=== PATIENT | female | born 1985 | race Caucasian/White ===

== ENCOUNTER 2022-04-09 12:06 | Outpatient (REF) | payer BC, MEDICAID, SELFPAY ==
--- NOTE | ~2022-04-09 | XR_ITS ---
EXAMINATION: XR ABDOMEN KUB CLINICAL INDICATION: Long-term drug therapy. COMPARISON: None TECHNIQUE: AP view of the abdomen. FINDINGS: Moderate gastric gaseous distention is seen. No significantly dilated loops of small bowel are seen. Mild to moderate gas and stool are seen within the colon distally to the rectum with moderate stool at the level the rectum. The osseous structures are unremarkable. XR/XR KUB IMPRESSION: 1. Moderate gastric gaseous distention this is nonspecific and could represent large gas bolus however, can be seen with gastroparesis. Gastric outlet obstruction would be less likely. 2. Mild to moderate colonic and rectal stool burden. Correlate with stool output. If symptoms persist or worsen, short-term repeat radiographic follow-up is recommended as clinically indicated to assess for change as there is no previous study available for comparison.
== END 2022-04-09 12:07 | disposition home or self-care (01) ==
LOC: HO.XRAY 12:06
PROVIDERS: PCP Internal Medicine; Visit Provider Internal Medicine Gastroenterology
DX: E46 Unspecified protein-calorie malnutrition (principal); R19.4 Change in bowel habit; Z79.899 Other long term (current) drug therapy
CPT/HCPCS: 74018

== ENCOUNTER 2022-04-19 09:34 | Outpatient (REF) | payer MEDICARE, MEDICAID, SELFPAY ==
[2022-04-19 10:00] LABS: MANUAL DIFF FLAG NO
[2022-04-19 10:22] LABS: Basophils Percent Auto 0.6 % (0-2); Eosinophils Absolute Auto 0.3 X10*3/uL (0.0-0.4); Eosinophils Percent Auto 5.2 % (0-4); Hematocrit 41.5 % (37.0-47.0); Hemoglobin 13.8 g/dl (12.0-16.0); Imm Gran Abs Auto 0.01 X10*3/uL (0.00-0.03); Imm Gran Pct Auto 0.2 % (0.0-0.4); Lymphocytes Absolute Auto 1.3 X10*3/uL (1.2-4.9); Lymphocytes Percent Auto 25.1 % (20-40); Mean Corpuscular HGB Conc 33.3 g/dl (31.0-35.0); Mean Corpuscular Volume 93.3 fL (80.0-98.0); Mean Platelet Volume 9.6 fL (9.4-12.3); Monocytes Absolute Auto 0.3 X10*3/uL (0.1-1.2); Neutrophils Absolute Auto 3.1 x10*3/uL (2.0-8.3); Neutrophils Percent Auto 62.9 % (45-73); Platelet Count 243 X10*3/uL (160-400); Red Blood Count 4.45 X10*6/uL (4.20-5.50)
[2022-04-19 10:59] LABS: Alanine Aminotransferase 46 U/L (0-31); Albumin Level 4.8 g/dL (3.5-5.0); Alkaline Phosphatase 60 U/L (39-117); Anion Gap 15 (12-20); Aspartate Amino Transferase 24 U/L (5-31); Bilirubin Total 0.3 mg/dL (0.0-1.0); Blood Urea Nitrogen 6 mg/dL (9-16); C Reactive Protein 0.02 mg/dL (< or = 0.50); Calcium 10.6 mg/dL (8.4-10.2); Carbon Dioxide 26 mmol/L (22-29); Chloride 101 mmol/L (96-108); Estimated Glomerular Filt Rate > 60; Glucose Random 77 mg/dL (60-115); Magnesium 1.9 mg/dL (1.6-2.6); Potassium 3.8 mmol/L (3.3-5.1); Sodium 138 mmol/L (135-145); Total Protein 7.7 g/dL (6.5-8.0)
[2022-04-19 11:02] LABS: Erythrocyte Sedimentation Rate 7 MM/HR (0-20)
[2022-04-19 11:14] LABS: Ferritin 21 ng/mL (10-122); TSH reflex Free T4 1.24 uIU/mL (0.32-4.0)
[2022-04-19 11:38] LABS: Folate 10.2 ng/mL (> or = 4.0); Vitamin B12 411 pg/mL (200-900)
[2022-04-22 05:02] LABS: Zinc 78 mcg/dL (60-130)
[2022-04-22 16:02] LABS: Calcium, Ionized 5.2 mg/dL (4.8-5.6)
[2022-04-23 16:52] LABS: Histamine Plasma <1.5 ng/mL (< OR = 1.8)
[2022-04-23 17:36] LABS: Vitamin A 58 mcg/dL (38-98)
[2022-04-24 15:06] LABS: Vitamin C 0.8 mg/dL (0.3-2.7)
[2022-04-26 15:47] LABS: Nicotinamide <20 ng/mL; Vit B3 - Nicotinic Acid <20 ng/mL
[2022-04-26 15:52] LABS: Vitamin B5 (Pantothenic Acid) <40 ng/mL (<275)
== END 2022-04-19 09:35 | disposition home or self-care (01) ==
LOC: HO.LAB 09:34
PROVIDERS: PCP Internal Medicine; Visit Provider Internal Medicine Gastroenterology
DX: E46 Unspecified protein-calorie malnutrition (principal); R19.4 Change in bowel habit; R19.7 Diarrhea, unspecified; E83.52 Hypercalcemia; K75.81 Nonalcoholic steatohepatitis (NASH); Z79.899 Other long term (current) drug therapy
CPT/HCPCS: 36415; 80053; 82180; 82306; 82330; 82607; 82728; 82746; 83088; 83520; 83735; 84207; 84443; 84590; 84591; 84630; 85025; 85652; 86140

== ENCOUNTER 2025-05-07 11:30 | Outpatient (REF) | payer MEDICARE, MEDICAID, SELFPAY ==
--- NOTE | ~2025-05-07 | XR_ITS ---
EXAMINATION: XR CHEST 2 VIEWS HISTORY: R05.9 - Cough, unspecified COMPARISON: There are no prior studies available for comparison. FINDINGS: PA and lateral views of the chest are submitted. The lungs are expanded and clear. There is no pleural effusion, pneumothorax, or pulmonary vascular congestion. The heart is normal in size. The bones are intact. XR/XR chest 2V IMPRESSION: Normal examination of the chest. Electronically signed by: Gene Ellington MD 05/07/2025 01:00 PM EDT
[2025-05-09 08:58] LABS: Alcohol, Ethyl Urine Screen NEGATIVE
[2025-05-13 09:20] LABS: PCP Confirmation GC/MS Urine NEGATIVE
== END 2025-05-07 11:31 | disposition home or self-care (01) ==
LOC: HO.10HDL 11:30
PROVIDERS: PCP Internal Medicine; Visit Provider Internal Medicine
DX: Z51.81 Encounter for therapeutic drug level monitoring (principal); R05.9 Cough, unspecified; F31.9 Bipolar disorder, unspecified; E03.9 Hypothyroidism, unspecified; Z79.899 Other long term (current) drug therapy; R53.83 Other fatigue
CPT/HCPCS: 71046; 80307; 83992; 99212

== ENCOUNTER 2025-05-07 11:30 | Outpatient (AMB) | payer MEDICARE, MEDICAID, SELFPAY ==
--- NOTE | 2025-05-07 11:33 | MHC.PC.OV ---
Vital Signs 05/07/25 11:36 Height 5 ft 1 in Weight 163 lb 8 oz BMI 30.9 BP 130/84 Blood Pressure Location Lt brachial Position Sitting Respiration 16 Pulse 87 Pulse Source Pulse Oximeter Temp 98.2 F Temp Source Oral Pulse Oximetry (%) 96 Oxygen Delivery Method Room Air Intake Visit Reasons: fatigue, dry cough, discuss possible ortho surgery Automobile Technician Required: No Accompanied by: Self / Same As Patient Allergies acetaminophen (From Vicodin) Allergy (Severe, Verified 05/07/25 11:33) Vomiting gabapentin Allergy (Severe, Verified 05/07/25 11:33) Shortness of Breath oxycodone Allergy (Intermediate, Verified 05/07/25 11:39) excessive sweating tizanidine (From Zanaflex) Allergy (Intermediate, Verified 05/07/25 11:33) Confusion cefazolin (From Ancef) Allergy (Unknown, Verified 05/07/25 11:33) Hives tramadol (From Ultram) Adverse Reaction (Severe, Verified 05/07/25 11:33) siezures metoclopramide (From Reglan) Adverse Reaction (Intermediate, Verified 05/07/25 11:33) Agitated Medication List - Last Reconciled 05/07/25 by Chandrika Flaherty MD acetaminophen-codeine 300-30 mg 2 tabs PO Q4H PRN albuterol sulfate 90 mcg/actuation 2 puffs inhalation Q6H PRN clonazepam 1 mg PO TID dicyclomine 10 mg PO QID furosemide 20 mg PO DAILY PRN gabapentin 300 mg PO BEDTIME lithium carbonate 300 mg PO meclizine 25 mg PO TID PRN metaxalone 800 mg PO BID PRN mupirocin 2% topical TID ondansetron 4 mg PO Q8H PRN propranolol 10 mg PO TID PRN ropinirole 0.5 mg PO DAILY tranexamic acid 1,300 mg PO TID trazodone 100 mg PO BEDTIME PRN zolmitriptan mg PO Tobacco use date assessed: 05/07/25 Dental Screening Dental Screen Date: 05/07/25 Did you have a dental visit in the last 12 months?: Yes Did you have a dental problem in the last 6 months where you did not have access to dental care?: No Was dental information given to patient?: Patient has dentist HPI HPI Comments History of Present Illness Details History of Present Illness The patient is a 40-year-old female presenting with a persistent cough. [facility] The patient has reported a persistent dry cough lasting for 10 weeks, having initially been treated as a viral illness without symptom resolution. Attempts to manage the symptom with codeine-based cough suppressants and tessalon perles have been ineffective. There is a noted presence of occasional wheezing. She uses albuterol sporadically for symptom management. The patient denies any episodes of shortness of breath. Her medical history includes bipolar disorder, a seizure disorder, and irritable bowel syndrome. Additionally, the patient has hypothyroidism, not requiring meds currently. Chronic hip pain- uses tylenol 3 prn, has seen orthopedist Dr. 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 - Respiratory: Reports persistent dry cough; denies shortness of breath; reports occasional wheezing. - Gastrointestinal: Denies abdominal pain but has a history of irritable bowel syndrome. - Neurological: Denies acute symptoms related to seizure disorder. - Psychiatric: History of bipolar disorder, no acute psychiatric symptoms reported. Physical Exam - General- No acute distress observed. - HEENT- Extraocular movements intact. - Respiratory- Coarse breath sounds bilaterally. - Abdomen- Soft and tender, non-distended, with normal active bowel sounds. - Extremities- Trace edema bilaterally. Assessment and Plan 1. Persistent Cough The patient presents with persistent dry cough for over two months, unresponsive to prior treatments. Investigation through chest X-ray is warranted, with further assessment on potential post-viral etiology. Medrol dose cecilia trial if no significant abnormalities are noted. Notes increased awilda with prednisone. 2. Fatigue Persistent fatigue will be evaluated through a CBC, lytes, blood culture and thyroid function tests to rule out hematological or thyroid causes, given her known history of hypothyroidism and absence of anemia indicators. 3. Chronic hip pain- contract renewed, tox screen ordered, pt due for refill 05/17 Discussion Notes During our consultation, I discussed the potential underlying causes of the persistent cough and ongoing fatigue with the patient. A chest X-ray is planned to better understand the respiratory issues, particularly given the history of ineffective symptom management with prior treatments. We also discussed the potential contributions of hypothyroidism to her fatigue and agreed upon obtaining a CBC and thyroid panel for further investigation. Patient Instructions - Get a chest X-ray as planned. - Complete blood work for CBC and thyroid tests. - Continue using medications as prescribed. - Monitor symptoms and report any new or worsened symptoms. - Follow up in 2 weeks. [facility] Medical History (Updated 05/07/25 @ 12:14 by Chandrika Flaherty MD) Fatigue Therapeutic drug monitoring Malnutrition Hypothyroid Cough Seizures Bipolar disorder Surgical History Hx of tonsillectomy Hx of reduction mammoplasty Hx of endoscopy Hx of colonoscopy Family History (Updated 05/07/25 @ 09:17 by Chandrika Flaherty MD) Mother Lymphoma Social History Household Members: Family and Children Housing: House Alcohol intake: never Patient Tobacco Use Status: Former Tobacco user Tobacco use type: Cigarette Years Smoked: quit in 12/2012, used to smoke for about 2-3 yrs about 1 pack every 4 days. e-Cigarette/Vaping Use: Never Used service: No Current occupational status: disabled Questionnaire AUDIT C Alcohol Use Questionnaire (AUDIT-C) 1. How often do you have a drink containing alcohol?: Never 3. How often do you have six or more drinks on one occasion?: Never Total Score: 0 Physical exam (Primary Care) Vital Signs: Last Vital Signs Temp 98.2 F 05/07/25 11:36 Pulse 87 05/07/25 11:36 Resp 16 05/07/25 11:36 BP 130/84 05/07/25 11:36 Pulse Ox 96 05/07/25 11:36 Oxygen Delivery Method Room Air 05/07/25 11:36 BMI result Body Mass Index 30.9 Tobacco/Smoking Status: Tobacco use Status Tobacco use date assessed 05/07/25 05/07/25 11:52 Patient Tobacco Use Status Former Tobacco user 05/07/25 11:35 Tobacco use type Cigarette 05/07/25 11:35 e-Cigarette/Vaping Use Never Used 05/07/25 11:52 Coding Level of Care Code Est Pt Level 4 (79451) Complex EM visit Add On G2211 Diagnoses Cough R05.9 [place] use Z79.899 Bipolar disorder F31.9 Hypothyroid E03.9 Therapeutic drug monitoring Z51.81 Assessment & Plan Assessment & Plan (1) Cough: Code(s): R05.9 - Cough, unspecified Category: Medical (2) [place] use: Code(s): Z79.899 - Other intermodal dispatcher (current) drug therapy Category: Medical (3) Bipolar disorder: Code(s): F31.9 - Bipolar disorder, unspecified Category: Medical (4) Hypothyroid: Code(s): E03.9 - Hypothyroidism, unspecified Category: Medical (5) Therapeutic drug monitoring: Code(s): Z51.81 - Encounter for therapeutic drug level monitoring Category: Medical Plan See above for additional details We will focus on obtaining a chest X-ray to explore the cause of her persistent cough. The reported fatigue prompts examination through CBC and thyroid panel, especially in the context of her hypothyroidism history. Management of her chronic conditions will be maintained as per her usual regimen pending any acute exacerbations. Orders: Orders Complete Blood Count Auto Diff Today E03.9 - Hypothyroidism, unspecified, F31.9 - Bipolar disorder, unspecified, R05.9 - Cough, unspecified, Z79.899 - Other intermodal dispatcher (current) drug therapy Comprehensive Met. Panel Today E03.9 - Hypothyroidism, unspecified, F31.9 - Bipolar disorder, unspecified, Z79.899 - Other intermodal dispatcher (current) drug therapy TSH reflex Free T4 Today E03.9 - Hypothyroidism, unspecified Alcohol, Ethyl Urine Screen Today Z51.81 - Encounter for therapeutic drug level monitoring Blood Culture X2 Today R53.83 - Other fatigue XR chest 2V Today R05.9 - Cough, unspecified Opiate Screen Urine Today Z51.81 - Encounter for therapeutic drug level monitoring Cocaine Screen Urine Today Z51.81 - Encounter for therapeutic drug level monitoring Benzodiazepines Screen Urine Today Z51.81 - Encounter for therapeutic drug level monitoring PCP Confirmation GC/MS Urine Today Z51.81 - Encounter for therapeutic drug level monitoring Barbiturates, Urine Today Z51.81 - Encounter for therapeutic drug level monitoring
[2025-05-07 11:36] VITALS: BP 130/84; PULSE 87; RESP 16; TEMP 36.8; O2SAT 96; BMI 30.9
--- OUTSIDE RECORDS SUMMARY | 2025-05-07 14:50 | XMS_ITS ---
Author Name [facility] Organization Unknown History of Medication Use Medication Directions Dispensed Refills Start Date End Date Stat us Kenalog 40 mg/mL suspension for injection Take 1 mL by injection route. 06/14/2023 4 active Kenalog 40 mg/mL suspension for injection Take 1 mL by injection route. 06/14/2023 4 completed lidocaine (PF) 10 mg/mL (1 %) injection solution Take 2 mL by injection route. 06/14/2023 4 completed lidocaine (PF) 10 mg/mL (1 %) injection solution Take 2 mL by injection route. 06/14/2023 4 active albuterol sulfate HFA 90 mcg/actuation aerosol inhaler INHALE 2 PUFFS BY MOUTH EVERY 6 HOURS NEEDED FOR WHEEZING 4 completed furosemide 20 mg tablet TAKE ONE TABLET BY MOUTH EVERY DAY NEEDED FOR LEG SWELLING 4 completed meclizine 25 mg tablet TAKE ONE TABLET BY MOUTH THREE TIMES A DAY FOR 7 DAYS NEEDED FOR DIZZINESS 4 completed methylprednisolone 4 mg tablets in a dose pack 09/06 4 completed propranolol 10 mg tablet TAKE ONE TABLET BY MOUTH TWICE A DAY NEEDED FOR TREMORS / ANXIETY 4 completed ropinirole 0.25 mg tablet TAKE TWO TABLETS BY MOUTH AT BEDTIME NEEDED FOR RESTLESS LEGS 4 completed amoxicillin 875 mg-potassium clavulanate 125 mg tablet TAKE 1 TABLET BY MOUTH TWO TIMES A DAY FOR 7 DAYS WITH FOOD 4 completed amoxicillin 875 mg-potassium clavulanate 125 mg tablet TAKE 1 TABLET BY MOUTH TWO TIMES A DAY FOR 7 DAYS WITH FOOD 4 completed benztropine 1 mg tablet TAKE ONE TABLET BY MOUTH TWICE A DAY 4 completed benztropine 1 mg tablet TAKE ONE TABLET BY MOUTH TWICE A DAY 4 active clonazepam 1 mg tablet TAKE ONE TABLET BY MOUTH TWICE A DAY NEEDED FOR ANXIETY 4 completed clonazepam 1 mg tablet TAKE ONE TABLET BY MOUTH TWICE A DAY NEEDED FOR ANXIETY 4 active codeine 10 mg-guaifenesin 100 mg/5 mL oral liquid TAKE 5 ML BY MOUTH EVERY 6 HOURS NEEDED FOR COUGH. 4 completed codeine 10 mg-guaifenesin 100 mg/5 mL oral liquid TAKE 5 ML BY MOUTH EVERY 6 HOURS NEEDED FOR COUGH. 4 completed diclofenac 1 % topical gel APPLY 2 GRAMS TOPICALLY TO AFFECTED AREA S) FOUR TIMES A DAY NEEDED FOR MODERATE PAIN. NOT TO EXCEED 16GRAMS/DAY/SIN GLE JOINT OF LOWER EX 4 active diclofenac 1 % topical gel APPLY 2 GRAMS TOPICALLY TO AFFECTED AREA S) FOUR TIMES A DAY NEEDED FOR MODERATE PAIN. NOT TO EXCEED 16GRAMS/DAY/SIN GLE JOINT OF LOWER EX 4 completed fluticasone propionate 50 mcg/actuation nasal spray,suspension USE 1 SPRAY IN EACH NOSTRIL TWO TIMES A DAY FOR 21 DAYS 4 active fluticasone propionate 50 mcg/actuation nasal spray,suspension USE 1 SPRAY IN EACH NOSTRIL TWO TIMES A DAY FOR 21 DAYS 4 completed haloperidol 10 mg tablet TAKE ONE TABLET BY MOUTH EVERY DAY IN THE EVENING 4 completed haloperidol 10 mg tablet TAKE ONE TABLET BY MOUTH EVERY DAY IN THE EVENING 4 completed haloperidol 5 mg tablet TAKE 1 TABLET BY MOUTH TWO TIMES A DAY 4 completed haloperidol 5 mg tablet TAKE 1 TABLET BY MOUTH TWO TIMES A DAY 4 completed hydroxyzine HCl 25 mg tablet TAKE TWO TABLETS BY MOUTH THREE TIMES A DAY NEEDED FOR ANXIETY AND SLEEP 4 completed hydroxyzine HCl 25 mg tablet TAKE TWO TABLETS BY MOUTH THREE TIMES A DAY NEEDED FOR ANXIETY AND SLEEP 4 completed Ingrezza 80 mg capsule 4 completed Ingrezza 80 mg capsule 4 active Linzess 290 mcg capsule TAKE ONE CAPSULE BY MOUTH EVERY DAY 4 completed Linzess 290 mcg capsule TAKE ONE CAPSULE BY MOUTH EVERY DAY 4 active nicotine 21 mg/24 hr daily transdermal patch APPLY 1 PATCH TOPICALLY DAILY 4 completed nicotine 21 mg/24 hr daily transdermal patch APPLY 1 PATCH TOPICALLY DAILY 4 completed pramipexole 0.25 mg tablet TAKE ONE TABLET BY MOUTH AT BEDTIME 4 completed pramipexole 0.25 mg tablet TAKE ONE TABLET BY MOUTH AT BEDTIME 4 completed albuterol sulfate HFA 90 mcg/actuation aerosol inhaler INHALE 2 PUFFS BY MOUTH EVERY 6 HOURS NEEDED FOR WHEEZING active clonazepam 0.5 mg tablet TAKE ONE TABLET BY MOUTH TWICE A DAY NEEDED FOR ANXIETY active clonazepam 0.5 mg tablet TAKE ONE TABLET BY MOUTH TWICE A DAY NEEDED FOR ANXIETY active dicyclomine 10 mg capsule TAKE ONE CAPSULE BY MOUTH FOUR TIMES A DAY WITH MEALS AND SNACK active dicyclomine 10 mg capsule TAKE ONE CAPSULE BY MOUTH FOUR TIMES A DAY WITH MEALS AND SNACK active furosemide 20 mg tablet TAKE ONE TABLET BY MOUTH EVERY DAY NEEDED FOR LEG SWELLING active lithium carbonate 300 mg capsule TAKE ONE CAPSULE BY MOUTH EVERY MORNING AND TAKE TWO CAPSULES BY MOUTH EVERY NIGHT active lithium carbonate 300 mg capsule TAKE ONE CAPSULE BY MOUTH EVERY MORNING AND TAKE TWO CAPSULES BY MOUTH EVERY NIGHT active meclizine 25 mg tablet TAKE ONE TABLET BY MOUTH THREE TIMES A DAY FOR 7 DAYS NEEDED FOR DIZZINESS active metaxalone 800 mg tablet TAKE ONE TABLET BY MOUTH THREE TIMES A DAY NEEDED FOR MODERATE PAIN active metaxalone 800 mg tablet TAKE ONE TABLET BY MOUTH THREE TIMES A DAY NEEDED FOR MODERATE PAIN active methylprednisolone 4 mg tablets in a dose pack ac tive ondansetron 4 mg disintegrating tablet DISSOLVE ONE TABLET BY MOUTH EVERY 8 HOURS NEEDED FOR NAUSEA AND VOMITING active ondansetron 4 mg disintegrating tablet DISSOLVE ONE TABLET BY MOUTH EVERY 8 HOURS NEEDED FOR NAUSEA AND VOMITING active propranolol 10 mg tablet TAKE ONE TABLET BY MOUTH TWICE A DAY NEEDED FOR TREMORS / ANXIETY active ropinirole 0.25 mg tablet TAKE TWO TABLETS BY MOUTH AT BEDTIME NEEDED FOR RESTLESS LEGS active ropinirole 0.5 mg tablet TAKE ONE TABLET BY MOUTH EVERY NIGHT AT BEDTIME active ropinirole 0.5 mg tablet TAKE ONE TABLET BY MOUTH EVERY NIGHT AT BEDTIME active trazodone 100 mg tablet TAKE 4 TABLETS BY MOUTH EVERY DAY AT BEDTIME NEEDED FOR INSOMNIA active trazodone 100 mg tablet TAKE 4 TABLETS BY MOUTH EVERY DAY AT BEDTIME NEEDED FOR INSOMNIA active Allergies Allergen Reaction Severity Comment Documented Date Source Statu s AN[facility]F [facility] NSAIDS (NON-STEROIDAL ANTI-INFLAMMATORY DRUG) [facility] REGLAN [facility] ULTRAM [facility] VENOM-HONEY BEE [facility] Problems Problem Status Onset Date Problem Type Date of Resoluti on Source Arthritis of right hip active 2023-06-28 ProblemAct [facility] Trochanteric bursitis of right hip active 2023-06-14 ProblemAct [facility] Iliotibial band friction syndrome active 2023-06-14 ProblemAct [facility] Acetabular labrum tear active 2023-08-26 ProblemAct [facility] Encounters Encounter Type Encounter Reason Primary Diagnosis Location Date Ambulatory [facility] 09/06/2023 Ambulatory [facility] 09/06/2023 Ambulatory [facility] 08/26/2023 Ambulatory [facility] 08/25/2023 [facility] 08/25/2023 [facility] 07/05/2023 [facility] 06/14/2023 [facility] 06/14/2023 [facility] 06/14/2023 [facility] 06/14/2023 [facility] 06/11/2023 [facility] 06/06/2023 Ambulatory [facility] 06/06/2023 Ambulatory [facility] 06/06/2023 Ambulatory [facility] 06/06/2023 Ambulatory [facility] 06/06/2023 Ambulatory [facility] 06/06/2023
--- OUTSIDE RECORDS SUMMARY | 2025-05-07 14:50 | XMS_ITS | Clinical Summary ---
Author Organization [facility] Address [address] [address] Phone Care Team Providers Care Chemical Dependency Nurse Name Role Phone Chandrika Flaherty MD Primary Care Provider + Allergies Active Allergy Reactions Criticality Noted Date Comments Cefazolin Hives,Other (See Comments) 03/18/2007 Ibuprofen 01/23/2025 Other Reaction(s): interacts with [place] Lorazepam 08/04/2023 Other Reaction(s): IRRITABLE AND COMBATIVE Metoclopramide 03/18/2007 Other Reaction(s): climbs [place] Tizanidine Other (See Comments) 08/04/2023 Other Reaction(s): sedation Tramadol Seizures High 06/21/2017 Venom-Honey Bee 08/04/2023 Medications acetaminophen-code ine (TYLENOL #3) 300-30 mg per tablet TAKE 2 TABLETS BY MOUTH EVERY 4 HOURS NEEDED FOR PAIN Active albuterol 90 mcg/actuation inhaler inhale two puffs into the lungs every six hours as needed for wheezing or for shortness of breath Active clonazePAM (KLONOPIN) 1 MG tablet Take 1 mg by mouth 3 (three) times a day as needed for anxiety. Active dicyclomine (BENTYL) 10 MG capsule TAKE ONE CAPSULE BY MOUTH FOUR TIMES A DAY WITH MEALS AND SNACK Active gabapentin (NEURONTIN) 300 MG capsule Take 300 mg by mouth 2 (two) times a day. Active lithium carbonate 300 MG capsule TAKE TWO CAPSULES BY MOUTH EVERY MORNING AND TAKE TWO CAPSULES BY MOUTH EVERY EVENING Active meclizine (ANTIVERT) 25 mg tablet Take 25 mg by mouth 3 (three) times a day as needed for dizziness. Active ondansetron (ZOFRAN-ODT) 4 MG disintegrating tablet DISSOLVE ONE TABLET BY MOUTH EVERY 8 HOURS NEEDED FOR NAUSEA AND VOMITING Active propranoloL (INDERAL) 10 MG immediate release tablet Take 10 mg by mouth 3 (three) times a day. Active rOPINIRole (REQUIP) 0.5 MG tablet Take 0.5 mg by mouth nightly at bedtime. Active ZOLMitriptan (ZOMIG) 2.5 MG tablet TAKE ONE TABLET BY MOUTH EVERY DAY NEEDED FOR MIGRAINE HEADACHE. MAY REPEAT DOSE ONCE IN 2 HOURS Active Encounters Date Type Department Care Team Description 03/06/2025 Telephone [employer] [facility] [address] [place] [id number] Claire Hadley RN Leg instability from Last 3 Months Social History Tobacco Use Types Packs/Day Years Used Date Smoking Tobacco: Never Smokeless Tobacco: Never Tobacco Cessation:Counseling Given: Not Answered Education Answer Date Recorded Are you interested in more education? Not on nerissa e 08/13/2024 Are you concerned about learning? Not on file 08/13/2024 No 08/13/2024 No 08/13/2024 Digital Access Answer Date Recorded No 08/13/2024 No 08/13/2024 Reliable internet access at home? Not on file 08/13/2024 Device with a working camera? Not on file Comments Unknown Sex and Gender Information Value Date Recorded Sex Assigned at Not on file Legal Sex Female 10:27 PM EDT Gender Identity Not on file Sexual Orientation Not on file Plan of Treatment Health Maintenance Due Date Last Done Comments CREATININE LEVEL 1987 LITHIUM LEVEL 1987 TSH LEVEL 1987 DEPRESSION SCREENING 1999 HEPATITIS C SCREENING 2005 HIV ONE-TIME SCREENING (18-6 5 YEARS) 2005 PAP SMEAR 02/11/2008 INFLUENZA VACCINE (#1) 2025 COVID-19 VACCINE (2024-2 6 season) 2025 Adult Td,Tdap Booster 11/30/2025 12/01/2015 SMOKING STATUS SCREENING (On ce After 26 Yrs) Completed 01/23/2025 HEPATITIS A VACCINES Aged Out No long er eligible based on patient's age to complete this topic HIB VACCINES Aged Out No longer eligi ble based on patient's age to complete this topic MENINGOCOCCAL VACCINES (ACWY) Aged Out No longer eligible based on patient's age to complete this topic MENINGOCOCCAL VACCINES (B) Aged Out N o longer eligible based on patient's age to complete this topic PNEUMOCOCCAL VACCINES (0-49 years) Aged Out No longer eligible based on patient's age to complete this topic Medical Devices Not on file Insurance [place] MEDIC[place] P[place] BLUE REPLACEMENT MEDICARE PART A & B Member Subscriber Plan / Payer (Ef fective 2016-Present) Name:RosalineCristina Member ID:[id number] Relation to Subscriber:Self Name:RosalineCristina Subscriber ID:[id number] Payer ID:[id number] Group ID:Not on file Type:Medicare Address: [facility]. [address] [place] [address] [facility] MEDICARE PPO BLUE REPLACEMENT MEDICARE PART A & B [facility] MEDICARE PPO BLUE REPLACEMENT MEDICARE PART A & B [id number] [place] [address] [place] BLUE REPLAC[place] MEDICARE PART A & B [place] BLUE REPLACEMENT MEDICARE PART A & B [facility] [place] BLUE REPLACEMENT MEDICARE PART A & B Member Subscriber Plan / Payer (Ef fective 2016-Present) Name:Cristina Waggoner Member ID:[id number] Relation to Subscriber:Self Name:Cristina Waggoner Subscriber ID:[id number] Payer ID:[id number] Group ID:Not on file Type:Medicare Address: [facility] [address] [place] [address] [facility] Care Teams Chemical Dependency Nurse Relationship Specialty Start Date End Date Chandrika Flaherty MD [address] [place] [address] PCP - General Internal Medicine 08/13/24 Additional Source Comments The information contained in this document represents components of the legal health record. It is not the complete legal health record.[facility]
--- OUTSIDE RECORDS SUMMARY | 2025-05-07 14:50 | XMS_ITS | Encounter Summary ---
Author Organization [facility], Address [address] [place] [address] Phone Care Team Providers Care Brake Holder Name Role Phone Chandrika Flaherty MD Primary Care Provider [phone] Encounter Details Date Type Department Care Team (Late st Contact Info) Description 09/14/2024 Documentation Only [facility], [address] [place] [phone] Travis Garcia DO [address] [place] [place] [phone] Social History Tobacco Use Types Packs/Day Years Used Date Smoking Tobacco: Never Assessed Comments Unknown Sex and Gender Information Value Date Recorded Sex Assigned at Not on file Legal Sex Female 4:55 PM EST Gender Identity Not on file Sexual Orientation Not on file documented as of this encounter Plan of Treatment Not on file documented as of this encounter Visit Diagnoses Not on filedocumented in this encounter Care Teams Brake Holder Relationship Specialty Start Date End Date Chandrika Flaherty MD [address] [facility] [place], [place] PCP - General Internal Medicine 02/22/24 documented as of this encounter
--- OUTSIDE RECORDS SUMMARY | 2025-05-07 14:50 | XMS_ITS | Encounter Summary ---
Author Organization [facility], Address [address] [place] [address] Phone Care Team Providers Care Basketball Coach Name Role Phone Chandrika Flaherty MD Primary Care Provider +1- [phone] Encounter Details Date Type Department Care Team (Late st Contact Info) Description 09/14/2024 Documentation Only [facility], [address] [place] [phone] Travis Garcia DO [address] [place] [phone] Social History Tobacco Use Types Packs/Day Years [...] on filedocumented in this encounter Care Teams Basketball Coach Relationship Specialty Start Date End Date Chandrika Flaherty MD [address] [facility] [place], [place] PCP - General Internal Medicine 02/22/24 documented as of this encounter
--- OUTSIDE RECORDS SUMMARY | 2025-05-07 14:50 | XMS_ITS | Clinical Summary ---
Author Organization [facility], Address [address] [place] [address] Phone Care Team Providers Care Global Program Manager Name Role Phone Chandrika Flaherty MD Primary Care Provider +1- [phone] Allergies Active Allergy Reactions Criticality Noted Date Comments Bee Venom 08/04/2023 Cefazolin Other (see comments) 03/18/2007 Gabapentin 08/04/2023 Other Reaction(s): ?breathing issues Lorazepam 08/04/2023 Other Reaction(s): IRRITABLE AND COMBATIVE Metoclopramide 03/18/2007 Other Reaction(s): [place] Tizanidine Other (see comments) 08/04/2023 Tramadol 06/21/2017 Medications traZODone (DESYREL) 100 MG tablet 100 mg Active rOPINIRole (REQUIP) 0.5 MG tablet TAKE ONE TABLET BY MOUTH EVERY NIGHT AT BEDTIME Active propranolol (INDERAL) 10 MG tablet Take 10 mg by mouth in the morning and 10 mg at noon and 10 mg in the evening. Active ondansetron ODT (ZOFRAN-ODT) 4 MG dispersible tablet See Instructions, DISSOLVE ONE TABLET BY MOUTH EVERY 8 HOURS FOR 7 DAYS NEEDED FOR NAUSEA AND VOMITING, # 21 tablet, 4 Refills, Maintenance, 06/03/23 8:51:00 EST, [facility], 160, cm, 06/03/23 8:07:00 EST, Height, 59, kg, 11/14/22 15... 3 Active metaxalone (SKELAXIN) 800 MG tablet Take 800 mg by mouth 3 Active lithium 300 MG capsule TAKE ONE CAPSULE BY MOUTH EVERY MORNING AND TAKE TWO CAPSULES BY MOUTH EVERY NIGHT Active furosemide (Lasix) 20 MG tablet Take 20 mg by mouth 3 Active EPINEPHrine (EPIPEN) 0.3 MG/0.3ML injection syringe Inject 0.3 mg into the shoulder, thigh, or buttocks Active dicyclomine (BENTYL) 10 MG capsule TAKE ONE CAPSULE BY MOUTH FOUR TIMES A DAY WITH MEALS AND SNACK Active clonazePAM (KlonoPIN) 0.5 MG tablet Take 0.5 mg by mouth 2 (two) times a day if needed for anxiety Active cholecalciferol (VITAMIN D-3) 50 MCG (1999) capsule Take 10 mcg by mouth 3 Active Active Problems Problem Noted Date Diagnosed Date 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/04/2023 Hyperparathyroidism 08/04/2023 Hypertension 08/04/2023 Hypothyroidism 08/04/2023 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 08/04/2023 Increased blood pressure 08/04/2023 Anemia 03/11/2017 Resolved Problems Problem Noted Date Diagnosed Date Resolved Date Tardive dyskinesia 08/04/2023 5 Swelling 08/04/2023 09/14/2024 Seizure disorder 08/04/2023 09/14/2024 Restless legs 08/04/2023 09/14/2024 Productive cough 08/04/2023 09/14/2024 Harmful pattern of use of multiple substances 08/04/1909/14/2024 Chest pain 08/04/2023 09/14/2024 Pain in lower limb 08/04/2023 Insomnia 08/04/2023 09/14/2024 Altered mental status 08/04/20232024 Bilateral lower limb edema 08/04/2023 0 09/14/2024 Anxiety 08/04/2023 09/14/2024 Bipolar disorder 08/04/2023 09/14/2024 Chronic back pain 08/04/2023 09/14/2024 Disturbance in sleep behavior 08/04/2023 09/14/2024 Diarrhea 08/04/2023 09/14/2024 Cramp in lower limb 08/04/2023 09/14/19 Pain of hip region 08/04/2023 Irritable bowel syndrome 08/04/2023 Easy bruising 03/11/2017 09/14/2024 Immunizations Immunization Administration Dates Next Due Influenza TIV (IM) 05/19/2020 Influenza, Unspecified 05/18/2021,05/25/2019 Pfizer SARS-COV-2 12/28/2020,12/07/2020 Pneumococcal Polysaccharide 05/25/2019 SARS-CoV-2, Unspecified 08/05/2021 Tdap 12/01/2015 Social History Tobacco Use Types Packs/Day Years Used Date Smoking Tobacco: Never Assessed Comments Unknown Sex and Gender Information Value Date Recorded Sex Assigned at Not on file Legal Sex Female 4:55 PM EST Gender Identity Not on file Sexual Orientation Not on file Last Filed Vital Signs Vital Sign Reading Time Taken Comments Blood Pressure 96/54 09/14/2024 5:02 PM EST Pulse 82 09/14/2024 5:02 PM EST Temperature - - Respiratory Rate - - Oxygen Saturation - - Inhaled Oxygen Concentration - - Weight 62.1 kg (136 lb 12.8 oz) 08/04/2023 1:42 PM EST Height - - Body Mass Index - - Plan of Treatment Health Maintenance Due Date Last Done Comments Hepatitis B Vaccine (1 of 3 - 19+ 3-dose series) 2006 Pneumococcal Vaccine: Peds ( 0 to 5 Years) and At-Risk Patients (6 to 49 Years) (2 of 2 - PCV) 05/25/2020 05/25/2019 Influenza Vaccine (#1) 2025 1, 05/19/2020, 05/25/2019 Pneumococcal Vaccine: 50+ Years Discontinued 9 Insurance [facility] Medicaid [place] [address] [address] Medicaid [place] Care Teams Global Program Manager Relationship Specialty Start Date End Date Chandrika Flaherty MD [address] [place], [place] PCP - General Internal Medicine 02/22/24
--- OUTSIDE RECORDS SUMMARY | 2025-05-07 14:50 | XMS_ITS | Clinical Summary ---
Author Organization [facility] Address [address] [place] [address] Care Team Providers Care Solar Field Service Technician Name Role Phone Chandrika Flaherty MD Primary Care Provider +1- [phone] Allergies Active Allergy Reactions Criticality Noted Date Comments Tramadol 06/21/2017 Medications Medication Sig Dispensed Refills Start Date End Date Status ALPRAZolam (XANAX) 0.5 MG tablet Take 0.5 mg by mouth every night at bedtime as needed for sleep. 0 Active amLODIPine (NORVASC) tablet 10 mg Take 10 mg by mouth daily. 0 Active diphenoxylate-atropine (LOMOTIL) 2.5-0.025 MG per tablet Take 1 tablet by mouth 4 (four) times a day as needed for diarrhea. 0 Active buPROPion (WELLBUTRIN XL) 300 MG 24 hr tablet Take 300 mg by mouth daily. 0 Active carisoprodol (SOMA) 350 MG tablet Take 350 mg by mouth 3 (three) times a day as needed for muscle spasms. 0 Active codeine 30 MG tablet Take 30 mg by mouth. 0 Active EPINEPHrine 0.3 MG/0.3ML SOAJ Inject 0.3 mg into the muscle once. 0 Active lithium carbonate 300 MG capsule Take 300 mg by mouth 2 (two) times a day with meals. 0 Active omeprazole (PRILOSEC) 20 MG capsule Take 20 mg by mouth daily. 0 Active ondansetron (ZOFRAN-ODT) 4 MG disintegrating tablet Take by mouth 3 (three) times a day. 0 Active propranolol (INDERAL) 10 MG tablet Take 10 mg by mouth 3 (three) times a day. 0 Active rizatriptan (MAXALT-CLINICAL STATISTICS MANAGER) 5 MG disintegrating tablet Take 5 mg by mouth as needed for migraine. May repeat in 2 hours if needed 0 Active rOPINIRole (REQUIP) 0.5 MG tablet Take 0.5 mg by mouth every night at bedtime. 0 Active Scopolamine (TRANSDERM-SCOP) 1 MG/3DAYS Place 1 patch onto the skin every third day. 0 Active Zolpidem Tartrate [address] under the tongue. 0 Active HYDROcodone-acetaminophe n (XODOL) 5-300 MG per tablet Take 1 tablet by mouth every 6 (six) hours as needed for pain. 0 Active furosemide (LASIX) 40 MG tablet Take 40 mg by mouth daily. 0 Active Active Problems Problem Noted Date Diagnosed Date Low plasma von Willebrand factor (vWF) 7 Anemia, unspecified 03/11/2017 Low ferritin 03/11/2017 Easy bruising 03/11/2017 Social History Tobacco Use Types Packs/Day Years Used Date Smoking Tobacco: Former Smokeless Tobacco: Never Alcohol Use Standard Drinks/Week Comments No 0 (1 standard drink = 0.6 oz pur e alcohol) Sex and Gender Information Value Date Recorded Sex Assigned at Not on file Gender Identity Not on file Sexual Orientation Not on file Last Filed Vital Signs Vital Sign Reading Time Taken Comments Blood Pressure 127/86 12/14/2017 3:04 PM EDT Pulse 81 12/14/2017 3:04 PM EDT Temperature 37.4 C (99.4 F) 12/14/2017 3:04 PM EDT Respiratory Rate - - Oxygen Saturation - - Inhaled Oxygen Concentration - - Weight 56.2 kg (124 lb) 12/14/2017 3:04 PM EDT Height 157.5 cm (5' 2 ) 12/14/2017 3:04 PM EDT Body Mass Index 22.68 12/14/2017 3:04 PM EDT Plan of Treatment Health Maintenance Due Date Last Done Comments Hepatitis B Vaccines (1 of 3 - 3-dose series) 1987 Hepatitis C Screening 1987 COVID-19 Vaccine (#1) 1987 Depression Screening 1999 Preventative Health Evaluation 2005 DTap / Tdap / Td (1 - Tdap) 2006 Cervical Cancer Screening (P ap Smear) 02/11/2008 Influenza Vaccine (#1) 2025 Pneumococcal Vaccine Aged Out No long er eligible based on patient's age to complete this topic RSV Ped < 20 months Aged Out No longe r eligible based on patient's age to complete this topic Care Teams Solar Field Service Technician Relationship Specialty Start Date End Date Chandrika Flaherty MD [address] [place] [address] PCP - General Internal Medicine 03/11/17
== END 2025-05-07 16:04 | disposition home or self-care (01) ==
LOC: HO.HMCHD 11:31
PROVIDERS: PCP Internal Medicine; Visit Provider Internal Medicine
DX: R05.9 Cough, unspecified (principal); Z79.899 Other long term (current) drug therapy; F31.9 Bipolar disorder, unspecified; E03.9 Hypothyroidism, unspecified; Z51.81 Encounter for therapeutic drug level monitoring

== ENCOUNTER → 2025-05-07 12:42 | Outpatient (BNV) | payer MEDICARE, MEDICAID, SELFPAY | PROVIDERS: PCP Internal Medicine; Visit Provider Radiology Diagnostic Radiology | DX: R05.9 Cough, unspecified (principal) | CPT/HCPCS: 71046 ==

== ENCOUNTER 2025-05-30 09:04 | Outpatient (AMB) | payer MEDICARE, MEDICAID, SELFPAY ==
--- NOTE | 2025-05-30 08:48 | A.OFFPC_ITS ---
Vital Signs 05/30/25 09:05 Height 5 ft 2.5 in Weight 158 lb 2 oz BMI 28.5 BP 100/68 Blood Pressure Location Lt brachial Position Sitting Respiration 16 Pulse 68 Pulse Source Pulse Oximeter Temp 96.8 F Temp Source Temporal Artery Scan Pulse Oximetry (%) 96 Oxygen Delivery Method Room Air Intake Visit Reasons: Persistent pain on right hip/leg area -see comment Breast Puller Required: No Accompanied by: Self / Same As Patient Allergies acetaminophen (From Vicodin) Allergy (Severe, Verified 05/30/25 08:48) Vomiting gabapentin Allergy (Severe, Verified 05/30/25 08:48) Shortness of Breath oxycodone Allergy (Intermediate, Verified 05/30/25 08:48) excessive sweating tizanidine (From Zanaflex) Allergy (Intermediate, Verified 05/30/25 08:48) Confusion cefazolin (From Ancef) Allergy (Unknown, Verified 05/30/25 08:48) Hives tramadol (From Ultram) Adverse Reaction (Severe, Verified 05/30/25 08:48) siezures metoclopramide (From Reglan) Adverse Reaction (Intermediate, Verified 05/30/25 08:48) Agitated Medication List - Last Reconciled 05/30/25 by Chandrika Flaherty MD acetaminophen-codeine 300-30 mg 2 tabs PO Q4H PRN 7 days albuterol sulfate 90 mcg/actuation 2 puffs inhalation Q6H PRN clonazepam 1 mg PO TID dicyclomine 10 mg PO QID PRN furosemide 20 mg PO DAILY PRN gabapentin 300 mg PO BEDTIME lithium carbonate 300 mg PO meclizine 25 mg PO TID PRN metaxalone 800 mg PO BID PRN 30 days mupirocin 2% topical TID ondansetron 4 mg PO Q8H PRN propranolol 10 mg PO TID PRN ropinirole 0.5 mg PO DAILY tranexamic acid 1,300 mg PO TID trazodone 100 mg PO BEDTIME PRN zolmitriptan mg PO Tobacco use date assessed: 05/23/25 Dental Screening Dental Screen Date: 05/23/25 HPI HPI Comments History of Present Illness Details The patient is a 40 year-old female presenting for management of severe, chronic right hip pain and medication adjustment. Chronic Right Hip Pain: The patient reports chronic, severe, and nauseating right hip pain that has been ongoing for at least a week to a week and a half in its current intensity. The pain is so severe it causes her to cry in her sleep and prevents her from lying on her right side. An orthopedist, Dr. Jackson, reviewed a hip MRI and identified tearing and shredding She also reports an incredibly tight iliotibial (IT) band. Past interventions such as steroid injections and physical therapy have been ineffective. Topical treatments, including Lidoderm patch, Voltaren gel, lidocaine ointment, and a magnesium ointment (Theraworx), have also failed to provide relief. The patient is scheduled for a follow up visit with Dr. Jackson in about 4 weeks. Medication Management: The patient is currently taking Tylenol with codeine (#3), up to the maximum dose of 12 tablets per day, which provides some but not complete relief for her pain. She takes metaxalone (Skelaxin) twice daily, as it is the only muscle relaxer she has tolerated without significant side effects; she reports an allergy to other muscle relaxers and experienced grogginess with baclofen. She has previously tried gabapentin, which caused side effects of cloudy vision and a sensation of hypoventilation, so she now takes it only rarely for hot flashes. She uses Zofran ODT for associated nausea. The patient is unable to take NSAIDs. . 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 - She receives home nursing visits twice daily from [facility] for medication administration. Review of Systems - Constitutional: Reports hot flashes. - HEENT: Reports left ear discomfort - Gastrointestinal: Reports nausea secon herman to pain. - Musculoskeletal: Reports severe, nause ating right hip pain. Reports inability to lie on her right side due to pain. Reports tightness from the knee to the femoral head. Physical Exam - HEENT: Otoscopic examination of bilate ral ears reveals no cerumen or erythema. - Cardiovascular: Regular rate and rhyth m, normal heart sounds. - Respiratory: Lungs are clear to auscul tation bilaterally. - Musculoskeletal: Examination of the [facility] leg reveals significant pain on extension. The patient states sitting with the hip flexed is the most comfortable position. Assessment and Plan 1. Chronic severe right hip pain - The patient presents with inadequately controlled right hip pain. Her current regimen of max-dose Tylenol with codeine is insufficient. Due to medication intolerances and a history of opiate use, options are limited. The plan is to modify her pain regimen to improve efficacy and tolerability while she awaits surgical consultation. - Stop Tylenol with codeine. - Start codeine 60 mg/acetaminophen 300 mg, 1 tablet by mouth every 4 hours as needed, max 6 tablets/day. This maintains the same maximum daily codeine dose. A 7-day supply with refills will be provided. - The patient may use [id number] a cetaminophen between doses as needed. - Patient to continue metaxalone twice d aily. - Continue to hold NSAIDs - Patient will keep her orthopedic surge ry consultation with Dr. Jackson. 2. Nausea - This is likely secondary to severe emre n. - Refill ondansetron (Zofran) ODT as nee ded. 3. Home Health Care Coordination - The [facility] for [facility] management, which are at risk of being reduced by her insurance. Given her high level of pain, upcoming medication change, and potential surgery, continued nursing support is medically necessary. 4. Transaminitis- - The patient reports a history of eleva daysi liver enzymes from labs done at outside office that resolved - will obtain prior results 5. Left ear discomfort - The patient reports a feeling of conge stion in the left ear. Physical exam is unremarkable. - The etiology is likely related to sinu s congestion. Reassured the patient that there are no signs of acute infection. Discussion Notes I discussed with the patient her severe, debilitating right hip pain and reviewed the orthopedic findings from her MRI. We discussed that her current pain regimen with Tylenol #3 is at its maximum dose and is providing inadequate relief. I explained that we would not restart Vicodin given her history and successful efforts to remain off of it. I recommended a trial of codeine 60 mg/acetaminophen 300 mg tablets to see if this formulation provides better pain control while maintaining the same total daily codeine dosage. I advised her to take one tablet every four hours as needed, not to exceed six tablets in a day, and that she could supplement with plain acetaminophen if needed. We also discussed the importance of maintaining home nursing visits, especially with the medication change and her upcoming surgery. Patient Instructions - You will stop taking your current Tyle nol with codeine prescription. - Starting tomorrow, you will begin a ne w medication: codeine 60 mg/acetaminophen 300 mg. - Take one tablet of the new medication by mouth every 4 hours as needed for your hip pain. Do not take more than 6 tablets in one day. - You can take plain Tylenol (acetaminop hen) in between doses if you need extra pain relief. - A prescription for Zofran has been ref illed for you to use as needed for nausea. - It is very important to continue your home nursing visits. - Keep your appointment with the orthope dic specialist, Dr. Jackson. [facility] Medical History (Updated 05/30/25 @ 13:18 by Chandrika Flaherty MD) Transaminitis Nausea Chronic right hip pain Fatigue Therapeutic drug monitoring Malnutrition Hypothyroid Cough Seizures Bipolar disorder Surgical History Hx of tonsillectomy Hx of reduction mammoplasty Hx of endoscopy Hx of colonoscopy Family History Mother Lymphoma Social History Household Members: Family and Children Housing: House Alcohol intake: never Patient Tobacco Use Status: Former Tobacco user Tobacco use type: Cigarette Years Smoked: quit in 12/2012, used to smoke for about 2-3 yrs about 1 pack every 4 days. e-Cigarette/Vaping Use: Never Used service: No Current occupational status: disabled Cognitive needs: No Hearing needs: No Vision needs: No Questionnaire Thrive Questionnaire Date Thrive assessed: 05/23/25 HERB-7 AMB Questionnaire HERB-7 Date HERB - 7 assessed: 05/23/25 Source: Developed by Drs. Gene Hemphill, Marleni Dubois, John Melendez and colleagues, with an educational varghese from [employer]. Physical exam (Primary Care) Vital Signs: Last Vital Signs Temp 96.8 F 05/30/25 09:05 Pulse 68 05/30/25 09:05 Resp 16 05/30/25 09:05 BP 100/68 05/30/25 09:05 Pulse Ox 96 05/30/25 09:05 Oxygen Delivery Method Room Air 05/30/25 09:05 BMI result Body Mass Index 28.5 Tobacco/Smoking Status: Tobacco use Status Tobacco use date assessed 05/23/25 05/30/25 08:49 Patient Tobacco Use Status Former Tobacco user 05/30/25 08:49 Tobacco use type Cigarette 05/30/25 08:49 e-Cigarette/Vaping Use Never Used 05/30/25 08:49 Thrive Assessment: Date of Thrive Assessment Date Thrive assessed 05/23/25 05/30/25 08:49 Coding Level of Care Code Est Pt Level 4 (60439) Complex EM visit Add On G2211 Diagnoses Chronic right hip pain M25.551; G89.29 Nausea R11.0 Transaminitis R74.01 Time Spent (min) 35 Comment including visit time, chart review, examination and documentation Assessment & Plan Assessment & Plan (1) Chronic right hip pain: Code(s): M25.551 - Pain in right hip; G89.29 - Other chronic pain Category: Medical (2) Nausea: Code(s): R11.0 - Nausea Category: Medical (3) Transaminitis: Code(s): R74.01 - Elevation of levels of liver transaminase levels Category: Medical Plan Plan - Discontinue Tylenol with codeine. - Initiate codeine 60 mg/acetaminophen 300 mg, one tablet by mouth every 4 hours as needed for pain, with a maximum of 6 tablets per day. - Sent prescription for a 7-day supply with refills, with instructions to begin fill tomorrow. - Refill ondansetron (Zofran) ODT for nausea. - Patient to have laboratory studies, including liver function tests, drawn today. - Follow up in 2 months Medications: New acetaminophen-codeine 300-60 mg fill 05/31/25, change in medication dosage 1 tab PO Q4H 42 tabs 3RF severe pain 7 days Changed From ondansetron 4 mg PO Q8H PRN To ondansetron 4 mg PO TID PRN 30 tabs 5RF nausea and vomiting Discontinued acetaminophen-codeine 300-30 mg Discontinued Reason: Doctor's Order 2 tabs PO Q4H 7 days PRN 84 tabs 4RF pain
[2025-05-30 09:05] VITALS: BP 100/68; PULSE 68; RESP 16; TEMP 36; O2SAT 96; BMI 28.5
--- OUTSIDE RECORDS SUMMARY | 2025-05-30 09:52 | XMS_ITS | Clinical Summary ---
Author Organization [facility], Address [address] [place] [address] Phone Care Team Providers Care Administrative Assistant Front Desk Name Role Phone Chandrika Flaherty MD Primary Care Provider +1- [phone] Allergies Active Allergy Reactions Criticality Noted Date [...] Pneumococcal Vaccine: 50+ Years Discontinued 9 Insurance [facility] Medicaid [place] [id number] Medicaid [place] Care Teams Administrative Assistant Front Desk Relationship Specialty Start Date End Date Chandrika Flaherty MD [address] [place], [place] PCP - General Internal Medicine 02/22/24
--- OUTSIDE RECORDS SUMMARY | 2025-05-30 09:52 | XMS_ITS | Clinical Summary ---
Author Organization [facility] Address [address] [place] [address] Care Team Providers Care Bin Filler Name Role Phone Chandrika Flaherty MD Primary Care Provider +1- [phone] Allergies Active Allergy Reactions Criticality Noted Date [...] (three) times a day. 0 Active rizatriptan (MAXALT-TEXTILE BAG SEWER) 5 MG disintegrating tablet Take 5 mg [...] age to complete this topic Care Teams Bin Filler Relationship Specialty Start Date End Date Chandrika Flaherty MD [address] [place] [address] PCP - General Internal Medicine 03/11/17
--- OUTSIDE RECORDS SUMMARY | 2025-05-30 09:52 | XMS_ITS | Clinical Summary ---
Author Organization [facility] Address [address] [address] Phone Care Team Providers Care Diesel Mechanic Name Role Phone Chandrika Flaherty MD Primary Care Provider + Allergies Active Allergy Reactions Criticality Noted Date Comments Cefazolin Hives,Other (See Comments) 03/18/2007 Ibuprofen 01/23/2025 Other Reaction(s): interacts with [place] Lorazepam 08/04/2023 Other Reaction(s): IRRITABLE AND COMBATIVE [...] Type Department Care Team Description 03/06/2025 Telephone [facility] Medicine [address] [place] [id number] Claire Hadley RN Leg instability from Last [...] Orientation Not on file Plan of Treatment Upcoming Encounters Date Type Department Care Team (Late st Contact Info) Description 07/17/2025 11:15 AM EST Office Visit [facility] [address] [place] [id number] Valentino Jackson DO [address] [place] [address] Orthopedics & Sports Medicine, [facility] [place] [address] Health Maintenance Due Date Last Done Comments CREATININE LEVEL 1987 LITHIUM LEVEL 1987 TSH LEVEL 1987 DEPRESSION SCREENING 1999 HEPATITIS C SCREENING 2005 HIV ONE-TIME SCREENING (18-6 5 YEARS) 2005 PAP SMEAR 02/11/2008 INFLUENZA VACCINE (#1) 2025 COVID-19 VACCINE ( - 2024-2 6 season) 2025 Adult Td,Tdap Booster 11/30/2025 12/01/2015 SMOKING STATUS SCREENING (On ce After 26 Yrs) Completed 01/23/2025 HEPATITIS A VACCINES Aged Out No long er eligible based on patient's age to complete this topic HIB VACCINES Aged Out No longer eligi ble based on patient's age to complete this topic IPV VACCINES Aged Out No longer eligi ble [...] [place] MEDICARE PPO [place] [address] [address] [place] [address] MEDICARE PPO BLUE RE[place]ACEMENT [place] [address] [place] [address] MEDICARE PPO [place] [address] [place] [address] MEDICARE PPO [facility] [address] [place] [address] MEDICARE PPO [place] MEDIC[place] P[place] BLUE REPLACEMENT [facility] Care Teams Diesel Mechanic Relationship Specialty Start Date End Date Chandrika Flaherty MD PCP - General Internal Medicine 08/13/24 Additional Source Comments The information contained in this document represents components of the legal health record. It is not the complete legal health record.[facility]
--- OUTSIDE RECORDS SUMMARY | 2025-05-30 09:52 | XMS_ITS | Clinical Summary ---
Author Organization [facility] ity Address [address] [place] [address] Care Team Providers Care Cell Attendant Name Role Phone Chandrika Flaherty MD Primary Care Provider +1- [phone] Social History Tobacco Use Types Packs/Day Years Used Date Smoking Tobacco: Never Assessed Comments Unknown Sex and Gender Information Value Date Recorded Sex Assigned at Not on file Legal Sex Female 10:07 PM EST Gender Identity Not on file Sexual Orientation Not on file Plan of Treatment Health Maintenance Due Date Last Done Comments Hepatitis B Vaccines (1 of 3 - 19+ 3-dose series) 2006 Cervical Cancer Screening: P ap Smear 02/11/2008 HPV Vaccines (1 - 3-dose SCD M series) 2014 Depression Screening 07/18/2024 COVID-19 Vaccine (4 - 2024-2 6 season) 2025 08/05/2021, 12/28/2020, 12/07/2020 Influenza Vaccine (#1) 2025 , 05/19/2020, 05/25/2019 DTaP,Tdap,and Td Vaccines (2 - Td or Tdap) 11/30/2025 12/01/2015 RSV Immunization Adult Patients (1 - 1-dose 75+ series) 2062 Pneumococcal Vaccine: Pediatrics (0 to 5 Years) and At-Risk Patients (6 to 49 Years) Aged Out 05/25/2019 No longer eligible b ased on patient's age to complete this topic HIB Vaccines Aged Out No longer eligi ble based on patient's age to complete this topic Hepatitis A Vaccines Aged Out No long er eligible based on patient's age to complete this topic IPV Vaccines Aged Out No longer eligi ble based on patient's age to complete this topic MMR Vaccines Aged Out No longer eligi ble based on patient's age to complete this topic Meningococcal ACWY Vaccine Aged Out N o longer eligible based on patient's age to complete this topic Meningococcal B Vaccine Aged Out No l onger eligible based on patient's age to complete this topic RSV Immunization Patients Under 20 months Aged Out No longer eligible b ased on patient's age to complete this topic Varicella Vaccines Aged Out No longer eligible based on patient's age to complete this topic Care Teams Cell Attendant Relationship Specialty Start Date End Date Chandrika Flaherty MD [address] [place] [address] PCP - General 04/07/17
--- OUTSIDE RECORDS SUMMARY | 2025-05-30 09:52 | XMS_ITS | Encounter Summary ---
Author Organization [facility], Address [address] [place] [address] Phone Care Team Providers Care Bottle Blower Name Role Phone Chandrika Flaherty MD Primary Care Provider +1- [phone] Encounter Details Date Type Department Care Team (Late st Contact Info) Description 09/14/2024 Documentation Only [facility], [address] [place] [phone] Travis Garcia DO [address] [place] [phone] Social History Tobacco Use Types Packs/Day Years Used Date Smoking Tobacco: Never Assessed Comments Unknown Sex and Gender Information Value Date Recorded Sex Assigned at Not on file Legal Sex Female 4:55 PM EST Gender Identity Not on file Sexual Orientation Not on file documented as of this encounter Functional Status * BP Answer Date of Assessment Author 96/54 09/14/2024 5:02 PM Neville Marie DO * Pulse Answer Date of Assessment Author 82 09/14/2024 5:02 PM Neville Marie DO * BP Answer Date of Assessment Author 96/54 09/14/2024 5:02 PM Neville Marie DO documented as of this encounter Plan of Treatment Not on file documented as of this encounter Visit Diagnoses Not on filedocumented in this encounter Care Teams Bottle Blower Relationship Specialty Start Date End Date Chandrika Flaherty MD [address] [place], [place] PCP - General Internal Medicine 02/22/24 documented as of this encounter
--- OUTSIDE RECORDS SUMMARY | 2025-05-30 09:52 | XMS_ITS | Encounter Summary ---
Author Organization [facility], Address [address] [place] [address] Phone Care Team Providers Care Manager Of Corporate Name Role Phone Chandrika Flaherty MD Primary Care Provider +1- [phone] Encounter Details Date Type Department Care Team (Late st Contact Info) Description 09/14/2024 Documentation Only [facility], [address] [place] [phone] Travis Garcia DO [address] [place] [phone] Social History Tobacco Use Types Packs/Day Years [...] on filedocumented in this encounter Care Teams Manager Of Corporate Relationship Specialty Start Date End Date Chandrika Flaherty MD [address] [place], [place] PCP - General Internal Medicine 02/22/24 documented as of this encounter
== END 2025-05-30 09:47 | disposition home or self-care (01) ==
PROVIDERS: PCP Internal Medicine; Visit Provider Internal Medicine
DX: M25.551 Pain in right hip (principal); G89.29 Other chronic pain; R11.0 Nausea; R74.01 Elevation of levels of liver transaminase levels

== ENCOUNTER → 2025-05-30 09:04 | Outpatient (BNVA) | payer MEDICARE, MEDICAID, SELFPAY | PROVIDERS: PCP Internal Medicine; Visit Provider Internal Medicine | DX: M25.551 Pain in right hip (principal); G89.29 Other chronic pain; R11.0 Nausea; R74.01 Elevation of levels of liver transaminase levels; H92.02 Otalgia, left ear | CPT/HCPCS: 99212 ==